=== PATIENT | male | born 1990 | race Two or more races ===

== ENCOUNTER 2022-02-03 00:16 | Emergency (ER) | payer OTHER ==
[~2022-02-03] VITALS: Ht 180.3 cm; Wt 70.3 kg
--- NOTE | 2022-02-03 01:00 | NUR ---
PADMINI C/O ACCIDENTALLY INGESTING DRY CLEANING FLUID ON TUESDAY WHILE CLEANING PIPES, NOW HAS RIGHT RIB PAIN, PAIN WITH INHALING; TOLERATING R/A WELL . -N/V. PT A/OX4. SAFETY MEASURES IN PLACE
--- NOTE | 2022-02-03 01:37 | NUR ---
[employer] AT PT'S BEDSIDE
[2022-02-03 01:46] LABS: BASOPHILS # (AUTO) 0.1 K/uL (0.0-0.2); BASOPHILS % (AUTO) 0.4 % (0.0-2.0); EOSINOPHILS % (AUTO) 0.1 % (0.0-6.0); HEMATOCRIT 34 % (39-51); LYMPHOCYTES # (AUTO) 1.8 K/uL (0.8-4.8); LYMPHOCYTES % (AUTO) 11.8 % (20.0-44.0); MEAN CORPUSCULAR HGB CONC 32 g/dl (31.0-36.0); MEAN CORPUSCULAR VOLUME 68 fL (80-96); MONOCYTES % (AUTO) 6.8 % (2.0-12.0); NEUTROPHILS # (AUTO) 12.2 K/uL (1.8-8.9); NEUTROPHILS % (AUTO) 80.9 % (43.0-81.0); PLATELET COUNT (AUTO) 192 K/uL (150-450); RED BLOOD CELL COUNT(AUTO) 5.02 MIL/uL (4.5-6.0)
--- NOTE | 2022-02-03 01:47 | NUR ---
XRAY DONE AT BEDSIDE.
[2022-02-03 01:54] LABS: CALCIUM, SERUM 8.7 mg/dL (8.5-10.1); POTASSIUM 3.9 mmol/L (3.5-5.1)
--- NOTE | 2022-02-03 04:12 | NUR ---
CALLED POISON CONTROL AND SPOKE TO DALE. DISCUSS THE CASE OF THE PATIENT. PER POISON CONTROL DALE, DO SUPPORTIVE MEASURES AND TREAT PATIENT IF HE HAS PULMONARY INFECTION. DR MATA MADE AWARE.
[2022-02-03] MEDS ORDERED: AMOX-430 PO (04:30)
[2022-02-03] MEDS ORDERED: AMOX/CLAVULANATE 875 MG TABLET ONE (04:40)
[2022-02-03] MEDS: AMOX/CLAVULANATE 875 MG TABLET PO ONE (04:44)
--- NOTE | 2022-02-03 04:44 | NUR ---
Patient discharged to home in stable condition. Written and verbal after care instructions given. Patient verbalizes understanding of instruction.
[2022-02-03 04:45] VITALS: BP 119/63
== END 2022-02-03 04:46 | disposition home or self-care (01) ==
LOC: ER 00:21
DX: T59.891A Toxic effect of other specified gases, fumes and vapors, accidental (unintentional), initial encounter (principal); J69.0 Pneumonitis due to inhalation of food and vomit; R07.9 Chest pain, unspecified; Z60.2 Problems related to living alone; Z79.899 Other long term (current) drug therapy; Y92.89 Other specified places as the place of occurrence of the external cause
CPT/HCPCS: 36415; 71045-TC; 80048-TC; 85025-TC